=== PATIENT | male | born 1980 | race Caucasian/White ===

== ENCOUNTER 2020-05-14 15:15 | Emergency (ER) | payer MEDICAID ==
[~2020-05-14] VITALS: Ht 182.9 cm; Wt 97.5 kg
[~2020-05-14 15:15] MED LIST: CHLORDIAZEPOXID25 MG PO; FOLIC ACID1 MG PO; HYDROXYZINE HCL50 MG PO; IBUPROFEN400 MG PO; MULTI VITAMIN1 EACH PO; PANTOPRAZOLE SO40 MG PO; PROMETHAZINE HC25 M1 PO; TRAZODONE HCL100 MG PO; TYLENOL EXTRA500 MG PO; VITAMIN B-1100 MG PO; ZOFRAN8 MG PO
--- OUTSIDE RECORDS SUMMARY | 2020-05-14 15:18 | XMS ---
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 Mitch VISIT COUNT (12 MO.) [address] [place] [address] LEANNE Dumas TOTAL 2 NOTE: Visits indicate total known visits. ED/UCC VISIT TRACKING (12 MO.) 05/14/2020 15:16 [facility] [place] TYPE: Emergency COMPLAINT: - FALL, HEAD INJURY 03/31/2020 15:50 [facility] [place] TYPE: Emergency DIAGNOSES: [address]. Possible mental health concerns, worms coming out of body for 5 months . Cellulitis of face . Excoriation (skin-picking) disorder INPATIENT VISIT TRACKING (12 MO.) No inpatient visits to display in this time frame [email or web address]
== END 2020-05-14 20:08 | disposition home or self-care (01) ==
LOC: ED 15:15
DX: F07.81 Postconcussional syndrome (principal); F17.200 Nicotine dependence, unspecified, uncomplicated; Z79.899 Other long term (current) drug therapy
CPT/HCPCS: 70450; 99284-25